=== PATIENT | male | born 1960 | race Caucasian/White ===

== ENCOUNTER 2021-10-15 12:16 | Emergency (ER) | payer MEDICARE, BC, SELFPAY ==
[2021-10-15 12:24] VITALS: BP 115/76; PULSE 94; RESP 18; TEMP 35.6; O2SAT 97; BMI 32.3
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
--- NOTE | 2021-10-15 13:02 | CRLHL7_ITS ---
For Patients: As a result of the Century Cures Act, medical imaging exams and procedure reports are released immediately into your electronic medical record. You may view this report before your referring provider. If you have questions, please contact your health care provider. Indication: Fingertip laceration, table saw Technique: Three views of the left long finger Comparison: None Findings: Soft tissue injury to the distal aspect of the long finger. Displaced fracture fragments arising from the distal tuft including a displaced fracture fragment dorsally adjacent to the skin. Mild degenerative changes. Impression: Partial amputation at the tip of the long finger with displaced fracture fragments. Dictated by Mook Harris MD @ 10/15/2021 3:11:25 PM (Electronically Signed)
[2021-10-15] MEDS: LIDOCAINE 1% 20 ML VIAL INJECTION (13:19)
[2021-10-15] MEDS: cefTRIAXone 1 GM VIAL IM (14:10)
[2021-10-15] MEDS: TETANUS/DIPHTH/PERTUSSIS 0.5 ML SYRINGE IM (14:45)
[2021-10-15 15:30] VITALS: BP 115/76; PULSE 94; RESP 18; TEMP 35.6; O2SAT 97
[2021-10-15 15:32] VITALS: RESP 18; TEMP 35.6
== END 2021-10-15 15:33 | disposition home or self-care (01) ==
PROVIDERS: Emergency Provider Student in an Organized Health Care Education/Training Program
DX: S68.127A Partial traumatic metacarpophalangeal amputation of left little finger, initial encounter (principal); W31.2XXA Contact with powered woodworking and forming machines, initial encounter
CPT/HCPCS: 12002; 73140; 90471; 90715; 96372; 99283; 99284; J0696